=== PATIENT | female | born 1995 | race Caucasian/White ===

== ENCOUNTER 2016-09-18 05:46 | Emergency (ER) | payer OTHER ==
[~2016-09-18] VITALS: Ht 162.6 cm; Wt 63.3 kg
[~2016-09-18 05:46] MED LIST: BCPILLS PO
[2016-09-18 05:50] VITALS: TEMP 36.8; Ht 162.6 cm; Wt 63.3 kg
[2016-09-18] MEDS ORDERED: ONDANSETRON INJ 2 MG/ML 2 ML VIAL IV STA (06:00)
[2016-09-18] MEDS ORDERED: SODIUM CHLORIDE 0.9% 1000ML 1,000 ML IV STA (06:00)
[2016-09-18 06:32] LABS: BASO % 0.2 %; BASO ABS # 0.03 K/uL (0-0.2); COMPLETE YES; EOS % 0.6 %; HEMATOCRIT 42.2 % (37-47); IG% 0.3 %; LYMPH ABS # 0.49 K/uL (1.2-3.4); MEAN CELL VOLUME 87.9 fL (80-100); MEAN CORPUSCULAR HEMOGLOBIN 31.9 pg (25-34); MEAN CORPUSCULAR HGB CONC 36.3 g/dl (32-36); MEAN PLATELET VOLUME 10.4 fL (7.4-10.4); MONO % 3.7 %; NEUT % 92.2 %; PLATELET COUNT 220 K/uL (130-400); WHITE BLOOD COUNT 16.25 K/uL (4.8-10.8)
[2016-09-18 06:50] LABS: BUN/CREATININE RATIO 20.8 (10-20); CALCIUM 8.6 mg/dl (8.5-10.1); CREATININE 0.69 mg/dl (0.60-1.20); POTASSIUM 3.6 mmol/L (3.5-5.1)
[2016-09-18 06:54] LABS: PREG INTERNAL NEGATIVE QC NEG CLEAR BACKGROUND; PREG INTERNAL POSITIVE QC POS CONTROL LINE
[2016-09-18] MEDS ORDERED: ONDA4TAB10 SL (07:22)
--- NOTE | 2016-09-18 07:23 | EMERGENCY ROOM VISIT NOTE ---
History First contact with patient: 05:53 Chief Complaint: ABDOMINAL PAIN Stated Complaint: VOMITING,DIARRHEA,BACK PAIN,STOMACH PAIN Nursing Triage Summary: Pt reports N,V,D since 2200 yesterday. Pt developed severe abdominal pain and back pain at 0300. History of Present Illness The patient is a 21 year old female who presents to the Emergency Room with complaints of nausea, vomiting and diarrhea. The patient reports that approximately 8 hours ago, she developed a sudden onset of vomiting. She has had 5-6 episodes of vomiting overnight as well as multiple episodes of diarrhea. She did take Imodium which relieved her diarrhea slightly. She reports associated low back pain which began after the vomiting. She has had intermittent abdominal pain and states that it is relieved with the vomiting. She reports she is nauseous at this time. She rates her overall discomfort 8/ 10. She does report eating [employer] last night before the symptoms started. She denies any sick contacts. She denies any fevers/chills, chest pain, shortness of breath, urinary symptoms or blood in her vomit or stools. She denies any recent antibiotic use. Review of Systems A complete 10-point Review of Systems was discussed with the patient, with pertinent positives and negatives listed in the History of Present Illness. All remaining Review of Systems questions can be considered negative unless otherwise specified. Social History Smoking Status: Never Smoker Current/Historical Medications Scheduled Ondasetron Odt (Zofran Odt), 4 MG SL Q6H Allergies Coded Allergies: No Known Allergies (Unverified , 09/18/16) Physical Exam Vital Signs Date Time Temp Pulse Resp B/P Pulse Ox O2 Delivery O2 Flow Rate FiO2 09/18/16 06:28 96 18 117/74 98 Room Air 09/18/16 05:50 36.8 102 18 111/55 98 Room Air Physical Exam VITALS: Vitals are noted on the nurse's note and reviewed by myself. Vital signs stable. GENERAL: This is a 21-year-old female, in no acute distress, nondiaphoretic, well-developed well-nourished. SKIN: Capillary reflex less than 2 seconds. HEENT: Normocephalic. PERRLA. EOMI. Nares patent. Mucous membranes moist. Neck is supple without nuchal rigidity. HEART: Regular rate and rhythm without murmurs gallops or rubs. LUNGS: Clear to auscultation bilaterally without wheezes, rales or rhonchi. ABDOMEN: Positive bowel sounds x 4. Soft, nontender, without masses or organomegaly. NEURO: Patient was alert and oriented to person place and time. Medical Decision & Procedures Laboratory Results 09/18/16 06:15 Red Blood Count 4.80, Mean Corpuscular Volume 87.9, Mean Corpuscular Hemoglobin 31.9, Mean Corpuscular Hemoglobin Concent 36.3, Mean Platelet Volume 10.4, Neutrophils (%) (Auto) 92.2, Lymphocytes (%) (Auto) 3.0, Monocytes (%) (Auto) 3.7, Eosinophils (%) (Auto) 0.6, Basophils (%) (Auto) 0.2, Neutrophils # (Auto) 14.99, Lymphocytes # (Auto) 0.49, Monocytes # (Auto) 0.60, Eosinophils # (Auto) 0.09, Basophils # (Auto) 0.03 09/18/16 06:15 Test 09/18/16 06:15 White Blood Count 16.25 K/uL (4.8-10.8) Red Blood Count 4.80 M/uL (4.2-5.4) Hemoglobin 15.3 g/dL (12.0-16.0) Hematocrit 42.2 % (37-47) Mean Corpuscular Volume 87.9 fL (80-100) Mean Corpuscular Hemoglobin 31.9 pg (25-34) Mean Corpuscular Hemoglobin Concent 36.3 g/dl (32-36) Platelet Count 220 K/uL (130-400) Mean Platelet Volume 10.4 fL (7.4-10.4) Neutrophils (%) (Auto) 92.2 % Lymphocytes (%) (Auto) 3.0 % Monocytes (%) (Auto) 3.7 % Eosinophils (%) (Auto) 0.6 % Basophils (%) (Auto) 0.2 % Neutrophils # (Auto) 14.99 K/uL (1.4-6.5) Lymphocytes # (Auto) 0.49 K/uL (1.2-3.4) Monocytes # (Auto) 0.60 K/uL (0.11-0.59) Eosinophils # (Auto) 0.09 K/uL (0-0.5) Basophils # (Auto) 0.03 K/uL (0-0.2) RDW Standard Deviation 42.4 fL (36.4-46.3) RDW Coefficient of Variation 13.1 % (11.5-14.5) Immature Granulocyte % (Auto) 0.3 % Immature Granulocyte # (Auto) 0.05 K/uL (0.00-0.02) Anion Gap 12.0 mmol/L (3-11) Est Creatinine Clear Calc Drug Dose 110.5 ml/min Estimated GFR () 143.2 Estimated GFR (Non- 123.6 BUN/Creatinine Ratio 20.8 (10-20) Calcium Level 8.6 mg/dl (8.5-10.1) Total Bilirubin 0.7 mg/dl (0.2-1) Aspartate Amino Transf (AST/SGOT) 20 U/L (15-37) Alanine Aminotransferase (ALT/SGPT) 29 U/L (12-78) Alkaline Phosphatase 54 U/L (45-117) Total Protein 8.1 gm/dl (6.4-8.2) Albumin 4.0 gm/dl (3.4-5.0) Globulin 4.1 gm/dl (2.5-4.0) Albumin/Globulin Ratio 1.0 (0.9-2) Lipase 159 U/L (73-393) Human Chorionic Gonadotropin, Qual NEG (NEG) Medications Administered Medications (Trade) Dose Ordered Sig/Daquan Route Start Time Stop Time Status Last Admin Dose Admin Sodium Chloride (Nss 1000ml) 1,000 ml @ 999 mls/hr Q1H1M STAT IV 09/18/16 06:00 09/18/16 07:00 DC 09/18/16 06:26 999 MLS/HR Ondansetron HCl (Zofran Inj) 4 mg NOW STAT IV 09/18/16 06:00 09/18/16 06:05 DC 09/18/16 06:25 4 MG Medical Decision Differential diagnosis includes gastritis, colitis, appendicitis, cholecystitis , ovarian cyst, ovarian torsion, urinary tract infection, pyelonephritis, among others. The patient was evaluated as above. Labs were drawn and IV access was obtained. Imaging studies were performed and read by radiology as above. The patient was medicated with 1 L normal saline solution informal grams of IV. The patient was reassessed multiple times during their stay in the emergency department and remained in stable condition. The patient is a 21-year-old female who presents today complaining of nausea, vomiting and diarrhea. Labs revealed in moderate leukocytosis consistent with vomiting or mild infection. Labs were otherwise unremarkable, with no significant anemia or concerning electrolyte abnormalities. The patient has a benign abdominal exam. There is no focal tenderness. She felt much better after IV hydration and IV Zofran. She was able to tolerate oral fluids. She will follow-up with [facility] or return sooner for worsening symptoms. Based on the patient's presentation, lab results, and imaging studies, I feel the patient is stable for outpatient treatment. The patient's case was reviewed with Dr. Farooq, ED attending physician, who agreed with my assessment and treatment plan. Discharge instructions were reviewed with the patient. The patient verbalized understanding of my assessment and treatment plan and was discharged home in good condition. Impression Primary Impression: Nausea, vomiting and diarrhea Departure Information Dispostion Home / Self-Care Condition GOOD Prescriptions Ondasetron Odt (ZOFRAN ODT) 4 Mg Tab 4 MG SL Q6H for Nausea, #15 TAB Prov: Yumiko Washington ., WILLIS 09/18/16 Referrals No Doctor, Assigned (PCP) Patient Instructions My [facility] Additional Instructions You have been treated in the Emergency Department your Abdominal Pain. Laboratory results and imaging studies have ruled out any emergent causes for your abdominal pain which would warrant admission or surgery. You have been prescribed Zofran to be used for any nausea or vomiting. Take as prescribed. For pain control, you can use the following [id number] medicines (if >12 yo): - Regular strength (325mg/tab) Tylenol (acetaminophen) 2 tabs every 4-6 hours as needed. Do not exceed 12 tablets in a 24 hour period. Avoid taking more than 4 grams (4000 mg) of Tylenol per day. This includes any other sources of acetaminophen you may take on a regular basis. - Regular strength (200 mg/tab) Advil (ibuprofen) 1-2 tabs every 4-6 hours as needed. Do not exceed a dose of 3200 mg per day. Drink plenty of water and stay well hydrated. As with any trip to the Emergency Department, you should follow-up with your Primary Care Provider from today's visit. Return to the emergency department if your symptoms persist despite treatment plan outlined above or if the following symptoms occur: fevers, chills, worsening nausea/vomiting, blood in your stool or urine.
[2016-09-18 07:37] VITALS: BP 116/66; PULSE 96; O2SAT 97
== END 2016-09-18 07:38 | disposition home or self-care (01) ==
LOC: C.EDB 05:47 → C.EDA 07:38
DX: R11.2 Nausea with vomiting, unspecified (principal); R19.7 Diarrhea, unspecified